=== PATIENT | male | born 1960 | race Caucasian/White ===

== ENCOUNTER 2022-01-30 13:47 | Emergency (ER) | payer OTHER ==
--- NOTE | 2022-01-30 14:51 | ER ---
Nurse's Notes [facility] Name: Walt Waterman Age: 61 yrs Sex: Male : 1960 Arrival Date: 01/30/2022 Time: 13:49 Bed 9 Private MD: Diagnosis: Periapical abscess with sinus Presentation: 01/30 13:58 Chief complaint: Patient states: he has had a toothache for approx one week, however ap3 yesterday afternoon patient started noticing swelling in the right lower jaw. Patient reports the swelling increased over night, he visited a provider via teledoc, who informed him he needed to be evaluated in the ED. Patient complains of pain and swelling in his right lower jaw. Coronavirus screen: At this time, the client does not indicate any symptoms associated with coronavirus-19. Ebola Screen: No symptoms or risks identified at this time. Initial Sepsis Screen: Does the patient meet any 2 criteria? No. Patient's initial sepsis screen is negative. Does the patient have a suspected source of infection? Yes: Other: swelling with tooth ache. Risk Assessment: Do you want to hurt yourself or someone else? Patient reports no desire to harm self or others. Onset of symptoms was January 29, 2022. 13:58 Method Of Arrival: Ambulatory ap3 13:58 Acuity: MARILYN 4 ap3 Triage Assessment: 14:06 General: Appears in no apparent distress. comfortable, Behavior is calm, cooperative, ap3 appropriate for age. Pain: Complains of pain in right jaw Pain currently is 4 out of 10 on a pain scale. Pain began gradually, 2-3 days ago. EENT: Neuro: Level of Consciousness is awake, alert, obeys commands, Oriented to person, place, time, situation. Cardiovascular: Patient's skin is warm and dry. Respiratory: Airway is patent Respiratory effort is even, unlabored, Respiratory pattern is regular, symmetrical. Musculoskeletal: Swelling present in right jaw. Historical: - Allergies: 14:04 PENICILLINS; ap3 - Home Meds: 14:04 Levoxyl Oral [Active]; ap3 - PMHx: 14:04 Hypothyroidism; ap3 - Immunization history:: Client reports receiving the 2nd dose of the Covid vaccine, and booster Flu vaccine is up to date. - Social history:: Smoking status: Patient denies any tobacco usage or history of. Patient uses alcohol, on a daily basis. glass of wine a night. Screenin:07 Abuse screen: Denies threats or abuse. Nutritional screening: No deficits noted. ap3 Tuberculosis screening: No symptoms or risk factors identified. 14:57 Fall Risk Total [place] Fall Scale indicates No Risk (0-24 pts). ll1 Assessment: 14:56 Reassessment: No changes from previously documented assessment. Patient and/or family ll1 updated on plan of care and expected duration. Pain level reassessed. Patient is alert, oriented x 3, equal unlabored respirations, skin warm/dry/pink. Vital Signs: 13:58 BP 169 / 87; Pulse 76; Resp 17; Temp 98.1; Pulse Ox 100% ; Weight 73.03 kg; Height 6 ap3 ft. 1 in. (185.42 cm); Pain 6/10; 14:56 BP 150 / 95; Pulse 77; Resp 16; ll1 13:58 Body Mass Index 21.24 (73.03 kg, 185.42 cm) ap3 ED Course: 13:49 Patient arrived in ED. as 14:04 Triage completed. ap3 14:07 Arm band placed on left wrist. ap3 14:09 Shoaib Florence PA is PHCP. jr8 14:09 Benson Navarro MD is Attending Physician. jr8 14:35 Miguel Garcia, BETH is Primary Nurse. ll1 14:56 Patient has correct armband on for positive identification. Bed in low position. Call ll1 light in reach. Side rails up X 1. Cardiac monitoring not applicable on this patient. 14:56 No provider procedures requiring assistance completed. Patient did not have IV access ll1 during this emergency room visit. Administered Medications: No medications were administered Outcome: 14:50 Discharge ordered by . jr8 14:57 Discharged to home ambulatory. ll1 14:57 Condition: stable 14:57 Discharge instructions given to patient, Instructed on discharge instructions, follow up and referral plans. medication usage, Demonstrated understanding of instructions, follow-up care, medications, Prescriptions given X 2. 14:57 Patient left the ED. ll1 Signatures: Sophy Gutierrez Josh, PA PA jr8 Mercedez Acuña RN RN ap3 Miguel Garcia RN RN ll1
--- NOTE | 2022-01-30 14:51 | EDPHYS ---
Physician Documentation [facility] Name: Walt Waterman Age: 61 yrs Sex: Male : 1960 Arrival Date: 01/30/2022 Time: 13:49 Bed 9 Private MD: ED Physician Benson Navarro HPI: 01/30 14:28 This 61 yrs old Male presents to ER via Ambulatory with complaints of Facial Swelling, jr8 Mouth Problem. 14:28 Onset: The symptoms/episode began/occurred yesterday. 61-year-old male complains of jr8 right sided facial swelling and dental pain. He states that he has had right lower tooth pain for a while now, and noticed some right jaw swelling yesterday. He reports that he woke up this morning and that his jaw swelling had increased. Denies fever or any other symptoms. His last dental visit was 40 years ago.. Historical: - Allergies: 14:04 PENICILLINS; ap3 - Home Meds: 14:04 Levoxyl Oral [Active]; ap3 - PMHx: 14:04 Hypothyroidism; ap3 - Immunization history:: Client reports receiving the 2nd dose of the Covid vaccine, and booster Flu vaccine is up to date. - Social history:: Smoking status: Patient denies any tobacco usage or history of. Patient uses alcohol, on a daily basis. glass of wine a night. ROS: 14:28 Constitutional: Negative for fever, chills, and weight loss, Cardiovascular: Negative jr8 for chest pain, palpitations, and edema, Respiratory: Negative for shortness of breath, cough, wheezing, and pleuritic chest pain. 14:28 ENT: Positive for dental pain, Jaw pain. 14:28 All other systems are negative. Exam: 14:28 Constitutional: This is a well developed, well nourished patient who is awake, alert, jr8 and in no acute distress. Cardiovascular: Regular rate and rhythm with a normal S1 and S2. No gallops, murmurs, or rubs. Normal PMI, no JVD. No pulse deficits. Respiratory: Lungs have equal breath sounds bilaterally, clear to auscultation and percussion. No rales, rhonchi or wheezes noted. No increased work of breathing, no retractions or nasal flaring. 14:28 Head/face: Noted is swelling, that is moderate, of the right jaw, tenderness, that is mild, of the right jaw. 14:28 ENT: Dental exam: dental caries, pain, specifically in the lower right first bicuspid (#28), lower right second bicuspid (#29), lower right first molar (#30), lower right second molar (#31) and lower right third molar (#32). Vital Signs: 13:58 BP 169 / 87; Pulse 76; Resp 17; Temp 98.1; Pulse Ox 100% ; Weight 73.03 kg; Height 6 ap3 ft. 1 in. (185.42 cm); Pain 6/10; 14:56 BP 150 / 95; Pulse 77; Resp 16; ll1 13:58 Body Mass Index 21.24 (73.03 kg, 185.42 cm) ap3 MDM: 14:09 Patient medically screened. jr8 14:48 Data reviewed: vital signs, nurses notes, and as a result, I will discharge patient. jr8 Data interpreted: Pulse oximetry: on room air is 100 %. Interpretation: normal. Counseling: I had a detailed discussion with the patient and/or guardian regarding: the historical points, exam findings, and any diagnostic results supporting the discharge/admit diagnosis, the need for outpatient follow up, a dentist, to return to the emergency department if symptoms worsen or persist or if there are any questions or concerns that arise at home. ED course: Discussed with patient that if there is swelling were to worsen and go up to the orbit or to the submental region and he was feeling that he had any trouble swallowing or breathing to come back immediately for further evaluation. Otherwise we will start him on clindamycin needs to follow-up with dentist for further evaluation. Patient good with this at this time.. Administered Medications: No medications were administered Disposition Summary: 01/30/22 14:50 Discharge Ordered Location: Home jr8 Problem: new jr8 Symptoms: have improved jr8 Condition: Stable jr8 Diagnosis - Periapical abscess with sinus jr8 Followup: jr8 - With: Private Physician - When: 1 week - Reason: Recheck today's complaints, Continuance of care, Re-evaluation by your physician Discharge Instructions: - Discharge Summary Sheet jr8 - Dental Abscess jr8 - Dental Pain jr8 Forms: - Medication Reconciliation Form jr8 - Thank You Letter jr8 - Antibiotic Education jr8 - Prescription Opioid Use jr8 Prescriptions: - Clindamycin HCl 300 mg Oral Capsule - take 1 capsule by ORAL route every 6 hours for 10 days; 40 capsule; Refills: 0, jr8 Product Selection Permitted - Ibuprofen 800 mg Oral Tablet - take 1 tablet by ORAL route every 8 hours As needed take with food; 30 tablet; jr8 Refills: 0, Product Selection Permitted Signatures: Shoaib Florence PA PA jr8 Mercedez Acuña RN RN ap3
[2022-01-30 20:16] VITALS: TEMP 98.1; O2SAT 100
[2022-01-30 20:18] VITALS: BP 150/95
== END 2022-01-30 14:57 | disposition home or self-care (01) ==
LOC: ER 13:47
DX: K04.6 Periapical abscess with sinus (principal); E03.9 Hypothyroidism, unspecified; Z88.0 Allergy status to penicillin
CPT/HCPCS: 99282